=== PATIENT | female | born 1955 | race Caucasian/White ===

== ENCOUNTER 2021-09-11 17:03 | Emergency (ER) | payer MEDICARE, BC ==
[2021-09-11] MEDS ORDERED: Sodium Chloride 0.9% 1,000 ML IV SCH (18:00)
== END 2021-09-11 19:13 | disposition home or self-care (01) ==
LOC: JP.ED 17:03
DX: R55 Syncope and collapse (principal); E86.0 Dehydration; Z88.5 Allergy status to narcotic agent; Z91.018 Allergy to other foods
CPT/HCPCS: 96360; 99284; J7030